=== PATIENT | male | born 1970 | race African-American/Black ===

== ENCOUNTER 2021-05-05 09:53 | Emergency (ER) | payer OTHER ==
[~2021-05-05] VITALS: Ht 185.4 cm; Wt 86.4 kg
[2021-05-05 10:16] VITALS: TEMP 97
[2021-05-05 11:26] LABS: BASO % 0.4 % (0.0-2.0); EOS # 0.1 (0.0-0.7); EOS % 1.9 % (0-4.0); GRAN # 2.2 (1.4-6.5); GRAN % 42.3 % (42.2-75.2); HEMOGLOBIN 12.3 g/dl (13.5-18.0); LYMPH # 2.1 (1.2-3.4); LYMPH % 39.8 % (20.0-51.0); MEAN CELL VOLUME 81 fl (80.0-100.0); MEAN CORPUSCULAR HEMOGLOBIN 29 pg (27.0-31.0); MEAN CORPUSCULAR HGB CONC 35 g/dl (33.0-37.0); MEAN PLATELET VOLUME 10.5 fl (7.4-10.4); MONO # 0.8 (0.1-0.6); MONO % 15.2 % (1.7-9.3); PLATELET COUNT 228 K/mm3 (130-400); RED BLOOD COUNT 4.29 M/mm3 (4.20-5.60)
[2021-05-05 11:28] LABS: HEMATOCRIT 34.9 % (42.0-52.0)
[2021-05-05 11:29] LABS: INR 1.1 (0.8-3.0)
[2021-05-05 11:58] LABS: ALANINE AMINOTRANSFERASE 37 U/L (4-49); ALBUMIN 4.1 gm/dL (3.5-5.0); ALKALINE PHOSPHATASE 42 U/L (50-136); ANION GAP 6 mmol/L (7-16); AST,SGOT 41 U/L (15-37); BILIRUBIN,TOTAL 0.6 mg/dL (0.0-1.0); BLOOD UREA NITROGEN 17 mg/dL (9-20); CALCIUM 9.1 mg/dL (8.4-10.2); CARBON DIOXIDE 28 mmol/L (22-30); CHLORIDE 104 mmol/L (98-107); CREATININE, serum 1.26 (0.66-1.25); GLUCOSE 102 mg/dL (74-106); POTASSIUM 4.2 mmol/L (3.4-5.0); SODIUM 137 mmol/L (137-145); TOTAL PROTEIN 7.2 gm/dL (6.4-8.2)
[2021-05-05 12:03] LABS: COLLECTION METHOD CLEAN CATCH
[2021-05-05 12:09] LABS: TROPONIN-I 0.017 ng/mL (0.000-0.035)
[2021-05-05 12:09] LABS: PH 5 (5-8); SQUAMOUS EPITHELIAL None Seen /hpf; URINE APPEARANCE Clear; URINE BACTERIA None Seen /hpf; URINE BILIRUBIN Negative (NEGATIVE); URINE BLOOD Negative (NEGATIVE); URINE COLOR Yellow; URINE GLUCOSE Negative (NEGATIVE); URINE KETONE Negative (NEGATIVE); URINE LEUKOCYTE ESTERASE Negative (NEGATIVE); URINE NITRATE Negative (NEGATIVE); URINE PROTEIN(semi-quant) Negative (NEGATIVE); URINE UROBILINOGEN Negative (NEGATIVE)
[2021-05-05 12:14] LABS: LIPASE 105 U/L (23-300)
[2021-05-05 12:15] LABS: C-REACTIVE PROTEIN < 0.5 mg/dL (0.0-0.9)
[2021-05-05 12:34] LABS: MUCOUS Present /lpf; URINE RBC 0-2 /hpf
[2021-05-05] MEDS ORDERED: NORVASC 10MG10 MG PO (12:47)
[2021-05-05 14:15] VITALS: BP 148/96; PULSE 71
--- NOTE | 2021-05-06 10:04 | NUR ---
Service And Repair Supervisor received consult for patient who requested financial and social assistance. SW attempted to contact patient at #[phone], however the voicemail was not set up. SW consulted Katerine, Financial Counselor as patient is listed as self pay.
--- NOTE | 2021-05-06 10:32 | NUR ---
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 Patient states he used to be in the but is not retired. Patient states he was able to afford medications from the ED yesterday as he is familiar with [facility]. Patient states he does not take any regular medications. Patient is open to having an appointment set up at [facility] as ISIDRO advised patient it can take a month or more to get an appointment set with [facility]. ISIDRO contacted [facility] and scheduled an appointment for 05/12/21 @ 1300 then followed up with patient to provide appointment. Patient states he is interested in applying for Social Security Disability. ISIDRO provided patient with contact information for Katerine Financial Counselor.
== END 2021-05-05 14:14 | disposition home or self-care (01) ==
LOC: COL.ER 09:53
PROVIDERS: Emergency Medicine
DX: E86.0 Dehydration (principal); I10 Essential (primary) hypertension; N28.9 Disorder of kidney and ureter, unspecified
CPT/HCPCS: J7030; Q9967